=== PATIENT | male | born 1965 | race Caucasian/White ===

== ENCOUNTER 2018-05-03 12:25 | Emergency (ER) | payer SELFPAY ==
--- NOTE | 2018-05-03 12:33 | EDM.PDOC ---
ED HPI GENERAL MEDICAL PROBLEM - General Chief Complaint: Lower Extremity Injury/Pain Stated Complaint: PAIN IN HIPS Time Seen by Provider: 05/03/18 12:28 - History of Present Illness INITIAL COMMENTS - FREE TEXT/NARRATIVE: HISTORY AND PHYSICAL: History of present illness: 52-year-old white male presented concern of bilateral hip and buttock pain on the right side the stenosis radiate posteriorly down his thigh he states he's had this for the better part of a month worse in the a.m. there is no clear palliative factors need denies trauma Review of systems: As per history of present illness and below otherwise all systems reviewed and negative. Past medical history: As per history of present illness and as reviewed below otherwise noncontributory. Surgical history: As per history of present illness and as reviewed below otherwise noncontributory. Social history: No reported history of drug or alcohol abuse. Family history: As per history of present illness and as reviewed below otherwise noncontributory. Physical exam: HEENT: Atraumatic, normocephalic, pupils reactive, negative for conjunctival pallor or scleral icterus, mucous membranes moist, throat clear, neck supple, nontender, trachea midline. Lungs: Clear to auscultation, breath sounds equal bilaterally, chest nontender. Heart: S1S2, regular, negative for clicks, rubs, or JVD. Abdomen: Soft, nondistended, nontender. Negative for masses or hepatosplenomegaly. Negative for costovertebral tenderness. Pelvis: Stable nontender. Genitourinary: Deferred. Rectal: Deferred. Extremities: Atraumatic, negative for cords or calf pain. Neurovascular unremarkable. Neuro: Awake, alert, oriented. Cranial nerves II through XII unremarkable. Cerebellum unremarkable. Motor and sensory unremarkable throughout. Exam nonfocal. Diagnostics: X-ray bilateral hips with pelvis Therapeutics: None Impression: #1 bilateral hip pain etiology to be determined Definitive disposition and diagnosis as appropriate pending reevaluation and review of above. - Related Data Allergies Allergy/AdvReac Type Severity Reaction Status Date / Time No Known Allergies Allergy Verified 05/03/18 12:39 Home Meds: Home Meds . [No Known Home Meds] 05/03/18 [History] Review of Systems - Review of Systems Review Of Systems: ROS reveals no pertinent complaints other than HPI. ED EXAM, GENERAL - Physical Exam Exam: See Below (See dictation) Course - Vital Signs Last Recorded V/S: Last Vital Signs Temp 36.1 C 05/03/18 12:34 Pulse 107 H 05/03/18 12:34 Resp 18 05/03/18 12:34 BP 192/142 H 05/03/18 12:34 Pulse Ox 95 05/03/18 12:34 - Orders/Labs/Meds Meds: Medications Discontinued Medications Generic Name Dose Route Start Last Admin Trade Name Yamileth PRN Reason Stop Dose Admin Ketorolac Tromethamine 60 mg 05/03/18 13:09 05/03/18 13:13 Toradol IM 05/03/18 13:10 60 mg ONETIME ONE Administration Departure - Departure Time of Disposition: 13:54 Disposition: Home, Self-Care 01 Condition: Good Clinical Impression: Hip pain - Discharge Information Forms: ED Department Discharge Additional Instructions: The following information is given to patients seen in the emergency department who are being discharged to home. This information is to outline your options for follow-up care. We provide all patients seen in our emergency department with a follow-up referral. The need for follow-up, as well as the timing and circumstances, are variable depending upon the specifics of your emergency department visit. If you don't have a primary care physician on staff, we will provide you with a referral. We always advise you to contact your personal physician following an emergency department visit to inform them of the circumstance of the visit and for follow-up with them and/or the need for any referrals to a consulting specialist. The emergency department will also refer you to a specialist when appropriate. This referral assures that you have the opportunity for followup care with a specialist. All of these measure are taken in an effort to provide you with optimal care, which includes your followup. Under all circumstances we always encourage you to contact your private physician who remains a resource for coordinating your care. When calling for followup care, please make the office aware that this follow-up is from your recent emergency room visit. If for any reason you are refused follow-up, please contact the [facility] emergency department at and asked to speak to the emergency department charge nurse. [facility] - Orthopedic Clinic Professional [address], [address] [place] [address] I closed the neck as prescribed follow-up orthopedic clinic above call to schedule appointment return as needed as discussed
[2018-05-03] MEDS ORDERED: Ketorolac 60 MG/2 ML SDV IM ONE (13:09)
--- NOTE | 2018-05-03 13:15 | CR ---
EXAMINATION: Pelvis and bilateral hips HISTORY: Pain COMPARISON: CT dated 05/19/2014. TECHNIQUE: AP pelvis and bilateral views of the hips FINDINGS: There is no acute osseous abnormality, dislocation, or fracture. Bone mineralization and goldy int spaces are preserved. The femoral heads appear mildly widened bilaterally, right greater than lef t. SI joints are symmetric. Mild degenerative changes noted within the lower lumbar spine. IMPRESSION: 1. No acute osseous abnormality. 2. The femoral heads have a widened appearance which may suggest underlying cam-type femoral acetabul ar impingement bilaterally.
== END 2018-05-03 14:20 | disposition home or self-care (01) ==
LOC: MW.ED 12:25
DX: M25.551 Pain in right hip (principal); M25.552 Pain in left hip
CPT/HCPCS: 73521; 96372; 99283; J1885

== ENCOUNTER 2018-05-04 10:14 | Emergency (ER) | payer SELFPAY ==
--- NOTE | 2018-05-04 10:22 | EDM.PDOC ---
ED HPI GENERAL MEDICAL PROBLEM - General Chief Complaint: Back Pain or Injury Stated Complaint: PAIN IN HIPS AND LEGS Time Seen by Provider: 05/04/18 10:21 Source of Information: Reports: Patient History Limitations: Reports: No Limitations - History of Present Illness INITIAL COMMENTS - FREE TEXT/NARRATIVE: HISTORY AND PHYSICAL: History of present illness: Patient is a 52-year-old male who presents to the emergency room today with complaints of low back pain that radiates into his left hip and down his hamstring. He was seen in our emergency room on 05/03/2018 for this complaint and did have an x-ray and received Toradol IM. He was discharged to home. He states that his pain has not improved and at this time would like "pain pills". He states that he does have chronic back pain but is usually alleviated with aspirin. He has received Percocet in the past which she states did help. Denies any new injury or trauma. Denies any fever, chills, chest pain, shortness of breath or cough. Denies any abdominal pain, nausea, vomiting, diarrhea or constipation. Denies any numbness or tingling to his distal extremities Review of systems: As per history of present illness and below otherwise all systems reviewed and negative. Past medical history: As per history of present illness and as reviewed below otherwise noncontributory. Surgical history: As per history of present illness and as reviewed below otherwise noncontributory. Social history: No reported history of drug or alcohol abuse. Family history: As per history of present illness and as reviewed below otherwise noncontributory. Physical exam: General: Well-developed and well-nourished 52-year-old male. Appears mildly in discomfort and anxious while resting. Nontoxic appearing. HEENT: Atraumatic, normocephalic, pupils equal and reactive bilaterally, negative for conjunctival pallor or scleral icterus, mucous membranes moist, throat clear, neck supple, nontender, trachea midline. No drooling or trismus noted. No meningeal signs Lungs: Clear to auscultation, breath sounds equal bilaterally, chest nontender. Heart: S1S2, regular rate and rhythm without overt murmur Abdomen: Soft, nondistended, nontender. Negative for masses or hepatosplenomegaly. Negative for costovertebral tenderness. Pelvis: Stable nontender. Genitourinary: Deferred. Rectal: Deferred. Skin: Intact, warm, dry. No lesions or rashes noted. C-spine/back: No pinpoint vertebral tenderness upon palpation. No crepitus, step -offs or obvious deformities. He is able to ambulate on his heels and toes without difficulty. Deep tendon reflexes intact. No urinary or fecal incontinence. Denies any numbness or tingling to his distal extremities. Extremities: Atraumatic, negative for cords or calf pain. Neurovascular unremarkable. Neuro: Awake, alert, oriented. Cranial nerves II through XII unremarkable. Cerebellum unremarkable. Motor and sensory unremarkable throughout. Exam nonfocal. Notes: Patient's discomfort appears to be musculoskeletal in nature. The x-ray that was done yesterday shows no fracture or dislocation, was possible impingement. This information was shared with the patient. He does have a ride to home. We will give him 1 dose of Dilaudid IM while here. Prescription for diclofenac and Flexeril. Medication education was discussed. Patient was encouraged and educated on close follow-up with a primary care provider and orthopedic provider for further evaluation and management. He voices understanding and is agreeable to plan of care. He denies any further questions at this time. Diagnostics: [] Therapeutics: Dilaudid IM Impression: Low Back Pain Plan: 1. Tylenol and/or ibuprofen as needed for pain management. A prescription for diclofenac and Flexeril has been prescribed for you. Flexeril is a muscle relaxers to do not take it while driving or needing to be functioning outside of the house. Diclofenac is an anti-inflammatory so do not take any additional NSAID such as ibuprofen or Aleve. 2. Gentle stretching and ice/heating packs may be beneficial. 3. As we discussed, it is imperative that you create a follow-up appointment with your primary care provider and/or the nuclear medicine specialist. Return to the ED as needed and as discussed. Definitive disposition and diagnosis as appropriate pending reevaluation and review of above. Bilateral Hips Pain Score (Numeric/FACES): 9 - Related Data Allergies Allergy/AdvReac Type Severity Reaction Status Date / Time No Known Allergies Allergy Verified 05/04/18 10:25 Home Meds: Home Meds . [No Known Home Meds] 05/03/18 [History] Past Medical History Cardiovascular History: Reports: Hypertension - Past Surgical History GI Surgical History: Reports: Cholecystectomy Social & Family History - Family History Family Medical History: Noncontributory - Caffeine Use Caffeine Use: Reports: Energy Drinks, Soda, Tea ED ROS GENERAL - Review of Systems Review Of Systems: ROS reveals no pertinent complaints other than HPI. ED EXAM,LOWER BACK PAIN/INJURY - Physical Exam Exam: See Below (See dictation) Course - Vital Signs Last Recorded V/S: Last Vital Signs Temp 98.0 F 05/04/18 10:25 Pulse 114 H 05/04/18 10:25 Resp 20 05/04/18 10:25 BP 135/94 H 05/04/18 10:25 Pulse Ox 96 05/04/18 10:25 - Orders/Labs/Meds Meds: Medications Discontinued Medications Generic Name Dose Route Start Last Admin Trade Name Freq PRN Reason Stop Dose Admin Hydromorphone HCl 1 mg 05/04/18 10:59 Dilaudid IM 05/04/18 11:00 ONETIME ONE Departure - Departure Time of Disposition: 11:01 Disposition: Home, Self-Care 01 Clinical Impression: Low back pain Qualifiers: Chronicity: acute Back pain laterality: left Sciatica presence: with sciatica Sciatica laterality: sciatica of left side Qualified Code(s): M54.42 - Lumbago with sciatica, left side - Discharge Information Instructions: Chronic Back Pain Referrals: PCP,None [Primary Care Provider] - Forms: ED Department Discharge Additional Instructions: The following information is given to patients seen in the emergency department who are being discharged to home. This information is to outline your options for follow-up care. We provide all patients seen in our emergency department with a follow-up referral. The need for follow-up, as well as the timing and circumstances, are variable depending upon the specifics of your emergency department visit. If you don't have a primary care physician on staff, we will provide you with a referral. We always advise you to contact your personal physician following an emergency department visit to inform them of the circumstance of the visit and for follow-up with them and/or the need for any referrals to a consulting specialist. The emergency department will also refer you to a specialist when appropriate. This referral assures that you have the opportunity for follow-up care with a specialist. All of these measure are taken in an effort to provide you with optimal care, which includes your follow-up. Under all circumstances we always encourage you to contact your private physician who remains a resource for coordinating your care. When calling for follow-up care, please make the office aware that this follow-up is from your recent emergency room visit. If for any reason you are refused follow-up, please contact the [facility] Emergency Department at and asked to speak to the emergency department charge nurse. [facility] [address] [place] [id number] 1. Tylenol and/or ibuprofen as needed for pain management. A prescription for diclofenac and Flexeril has been prescribed for you. Flexeril is a muscle relaxers to do not take it while driving or needing to be functioning outside of the house. Diclofenac is an anti-inflammatory so do not take any additional NSAID such as ibuprofen or Aleve. 2. Gentle stretching and ice/heating packs may be beneficial. 3. As we discussed, it is imperative that you create a follow-up appointment with your primary care provider and/or the nuclear medicine specialist. Return to the ED as needed and as discussed.
[2018-05-04] MEDS ORDERED: HYDROmorphone 2 MG/ML SDV IM ONE (10:59)
== END 2018-05-04 11:45 | disposition home or self-care (01) ==
LOC: MW.ED 10:14
DX: M54.42 Lumbago with sciatica, left side (principal); I10 Essential (primary) hypertension
CPT/HCPCS: 96372; 99283; J1170

== ENCOUNTER 2019-06-18 11:38 | Emergency (ER) | payer MEDICAID, OTHER ==
--- NOTE | 2019-06-18 12:11 | EDM.PDOC ---
ED HPI GENERAL MEDICAL PROBLEM - General Chief Complaint: Medication Administration Stated Complaint: MEDICATION REFILL Time Seen by Provider: 06/18/19 12:08 Source of Information: Reports: Patient - History of Present Illness INITIAL COMMENTS - FREE TEXT/NARRATIVE: HISTORY AND PHYSICAL: History of present illness: [Patient presents without complaint however is requesting medication refill it just moved here from [place] he had formerly been in the area for a while but it left back in July and returns at this time No fever nausea vomiting chills sweats no chest pain shortness breath headache dizziness palpitation no bowel or urine symptoms] Review of systems: As per history of present illness and below otherwise all systems reviewed and negative. Past medical history: As per history of present illness and as reviewed below otherwise noncontributory. Surgical history: As per history of present illness and as reviewed below otherwise noncontributory. Social history: No reported history of drug or alcohol abuse. Family history: As per history of present illness and as reviewed below otherwise noncontributory. Physical exam: HEENT: Atraumatic, normocephalic, pupils reactive, negative for conjunctival pallor or scleral icterus, mucous membranes moist, throat clear, neck supple, nontender, trachea midline. Lungs: Clear to auscultation, breath sounds equal bilaterally, chest nontender. Heart: S1S2, regular, negative for clicks, rubs, or JVD. Abdomen: Soft, nondistended, nontender. Negative for masses or hepatosplenomegaly. Negative for costovertebral tenderness. Pelvis: Stable nontender. Genitourinary: Deferred. Rectal: Deferred. Extremities: Atraumatic, negative for cords or calf pain. Neurovascular unremarkable. Neuro: Awake, alert, oriented. Cranial nerves II through XII unremarkable. Cerebellum unremarkable. Motor and sensory unremarkable throughout. Exam nonfocal. Diagnostics: [] Therapeutics: [Metformin No. 30 Atenolol ] #30 Impression: [ diabetes hypertension ] Definitive disposition and diagnosis as appropriate pending reevaluation and review of above. - Related Data Allergies Allergy/AdvReac Type Severity Reaction Status Date / Time No Known Allergies Allergy Verified 06/18/19 12:02 Home Meds: Home Meds Atenolol [Tenormin] 50 mg PO DAILY 06/18/19 [History] metFORMIN [Glucophage] 500 mg PO DAILY 06/18/19 [History] Past Medical History Cardiovascular History: Reports: Hypertension - Infectious Disease History Infectious Disease History: Reports: None - Past Surgical History GI Surgical History: Reports: Cholecystectomy Social & Family History - Family History Family Medical History: Noncontributory - Tobacco Use Smoking Status *Q: Never Smoker Second Hand Smoke Exposure: Yes - Caffeine Use Caffeine Use: Reports: Coffee - Recreational Drug Use Recreational Drug Use: No ED ROS GENERAL - Review of Systems Review Of Systems: See Below ED EXAM, GENERAL - Physical Exam Exam: See Below Course - Vital Signs Last Recorded V/S: Last Vital Signs Temp 96.1 F 06/18/19 12:04 Pulse 64 06/18/19 12:04 Resp 16 06/18/19 12:04 BP 122/78 06/18/19 12:04 Pulse Ox 94 L 06/18/19 12:04 Departure - Departure Time of Disposition: 12:10 Disposition: Home, Self-Care 01 Condition: Good Clinical Impression: Diabetes, Hypertension - Discharge Information Additional Instructions: Follow-up and establish care with primary care provider Dali Bullock [facility] - Primary Care [address] [place] [address] The following information is given to patients seen in the emergency department who are being discharged to home. This information is to outline your options for follow-up care. We provide all patients seen in our emergency department with a follow-up referral. The need for follow-up, as well as the timing and circumstances, are variable depending upon the specifics of your emergency department visit. If you don't have a primary care physician on staff, we will provide you with a referral. We always advise you to contact your personal physician following an emergency department visit to inform them of the circumstance of the visit and for follow-up with them and/or the need for any referrals to a consulting specialist. The emergency department will also refer you to a specialist when appropriate. This referral assures that you have the opportunity for follow-up care with a specialist. All of these measure are taken in an effort to provide you with optimal care, which includes your follow-up. Under all circumstances we always encourage you to contact your private physician who remains a resource for coordinating your care. When calling for follow-up care, please make the office aware that this follow-up is from your recent emergency room visit. If for any reason you are refused follow-up, please contact the [facility] emergency department at and asked to speak to the emergency department charge nurse.
== END 2019-06-18 12:27 | disposition home or self-care (01) ==
LOC: MW.ED 11:38
DX: E11.9 Type 2 diabetes mellitus without complications (principal); I10 Essential (primary) hypertension; Z79.84 Long term (current) use of oral hypoglycemic drugs; Z79.899 Other long term (current) drug therapy; Z77.22 Contact with and (suspected) exposure to environmental tobacco smoke (acute) (chronic)
CPT/HCPCS: 99281; 99283